=== PATIENT | male | born 1950 | race Caucasian/White ===

== ENCOUNTER 2016-09-16 17:42 | Emergency (ER) | payer OTHER, BC ==
[~2016-09-16] VITALS: Ht 170.2 cm; Wt 78.3 kg
[2016-09-16] MEDS ORDERED: AMLODIPINE BESY10 MG PO (17:58)
[2016-09-16] MEDS ORDERED: SENNA8.6 MG PO (17:59)
[2016-09-16] MEDS ORDERED: ASPIR 8181 M1 PO (17:59)
[2016-09-16] MEDS ORDERED: FLEXERIL5 MG PO (17:59)
[2016-09-16] MEDS ORDERED: LORAZEPAM0.5 MG PO (18:00)
[2016-09-16] MEDS ORDERED: TRAMADOL HCL50 MG PO (18:01)
[2016-09-16 18:48] LABS: BASOPHIL COUNT 0.1 K/uL (0-0.1); EOSINOPHIL (%) 4.9 % (0-5); EOSINOPHIL COUNT 0.6 K/uL (0-0.3); HEMATOCRIT 35.8 % (38.0-50.0); IMMATURE GRANULOCYTE (%) 0.2 % (0.0-0.7); INSTRUMENT ABS NEUTROPHIL CT 8.2 K/uL; LYMPHOCYTE COUNT 3.3 K/uL (1.0-2.8); MCH 26.3 PG (29.0-34.0); MCHC 31.6 G/DL (30.0-36.0); MCV 83.4 FL (86-99); MEAN PLAT.VOLUME 10.3 uM^3 (9.0-12.4); MONOCYTE (%) 5.6 % (3-12); MONOCYTE COUNT 0.7 K/uL (0-0.8); NEUTROPHIL (%) 63.2 % (45-76); NEUTROPHIL COUNT 8.2 K/uL (1.8-6.4); PLATELET COUNT 337 K/uL (156-360); RBC DIS.WIDTH-CV 15.8 % (11.8-14.6); RBC DIS.WIDTH-SD 47.7 % (39-53); RED BLOOD COUNT 4.29 M/uL (4.00-5.50); WHITE BLOOD COUNT 12.9 K/uL (4.1-10.2)
[2016-09-16 18:58] LABS: CHLORIDE 103 mEq/L (99-109); POTASSIUM 3.7 mEq/L (3.7-5.4); SODIUM 137 mEq/L (136-147)
[2016-09-16 19:00] LABS: GLUCOSE 89 mg/dL (70-99)
[2016-09-16 19:01] LABS: ANION GAP 10 MEQ/L (2-14); PTT 26.8 (25-32)
[2016-09-16 19:03] LABS: GFR ESTIMATE (CALCULATED) 46 mL/min/
[2016-09-16 19:04] LABS: UREA NITROGEN (BUN) 17 mg/dL (9-23)
[2016-09-16] MEDS ORDERED: DOXYCYCLINE HY100 MG PO (20:50)
[2016-09-16] MEDS ORDERED: PREDNISONE50 MG PO (20:50)
[2016-09-16 21:15] VITALS: BP 164/89
== END 2016-09-16 21:16 | disposition home or self-care (01) ==
LOC: EME 17:42
PROVIDERS: Emergency Medicine
DX: R04.2 Hemoptysis (principal); I10 Essential (primary) hypertension; Z79.82 Long term (current) use of aspirin; F17.200 Nicotine dependence, unspecified, uncomplicated
CPT/HCPCS: 71020; 80048; 85025; 85610; 85730; 99281; 99284; J7512